=== PATIENT | female | born 1955 | race Caucasian/White ===

== ENCOUNTER 2016-10-25 10:52 | Outpatient (CLI) | payer BC, OTHER ==
[~2016-10-25] VITALS: Ht 162.6 cm; Wt 70.3 kg
[~2016-10-25 10:52] MED LIST: ASPI81TA83 OR; ASPI81TA85 PO; CENTTAB PO; CHRO200C PO; CINNAMON CAP PO; DEXI60CA2 PO; FISH100049 PO; GLIP5TAB8 PO; JANU100T PO; METF10004 PO; METF500T4 OR; MULTIVIT PO; OMEGA 3,6,9 PO; PRIL40CA OR; SIMV40TA2 OR; SIMV40TA2 PO; SUPETAB25 PO; TIZA2TAB3 PO; TIZA4CAP3 PO; TURM500T PO; TURMPOW PO
[2016-10-25] MEDS ORDERED: NS 1,000 ML IV ONE (11:00)
[2016-10-25] MEDS ORDERED: fentaNYL 100 MCG/2 ML INJECTION (J3010) As Ordered ONE (12:54)
[2016-10-25] MEDS ORDERED: PROPOFOL 200 MG/20 ML VIAL As Ordered ONE ×3 (13:11→13:21)
[2016-10-25] MEDS ORDERED: LIDOCAINE 2% INJ 100 MG/5 ML SDV (FOR ANES.) As Ordered ONE (13:11)
--- NOTE | 2016-10-25 13:11 | ROOR ---
Patient Name: Nimco Beard Procedure Date: 10/25/2016 12:52 PM Date of : 1955 Age: 61 Room: [facility] Gender: Female Note Status: Finalized Procedure: Upper Endoscopy + Biopsies Indications: Heartburn Providers: Radu Soto MD Referring MD: MARCE EASLEY MD Requesting Provider: Medicines: Monitored Anesthesia Care Complications: No immediate complications. Procedure: Pre-Anesthesia Assessment: - The heart rate, respiratory rate, oxygen saturations, blood pressure, adequacy of pulmonary ventilation, and response to care were monitored throughout the procedure. The Endoscope was introduced through the mouth, and advanced to the second part of duodenum. The upper GI endoscopy was accomplished without difficulty. The patient tolerated the procedure well. Findings: The Z-line was regular and was found 40 cm from the incisors. One polyp with no bleeding was found 40 cm from the incisors. Biopsies were taken with a cold forceps for histology. No other significant abnormalities were identified in a careful examination of the stomach. The exam of the duodenum was otherwise normal. Impression: - Z-line regular, 40 cm from the incisors. - Esophageal polyp(s) were found. Biopsied. - The examination was otherwise normal. Recommendation: - Await pathology results. - Discharge patient to home. - Follow an antireflux regimen. - Continue present medications. - Return to referring physician. - Telephone GI clinic for pathology results in 1 week. - The findings and recommendations were discussed with the patient's family. Radu Soto MD Radu Soto MD 10/25/2016 1:10:58 PM This report has been signed electronically. Number of Addenda: 0 Note Initiated On: 10/25/2016 12:52 PM Estimated Blood Loss: Estimated blood loss: none.
--- NOTE | 2016-10-25 13:36 | ROOR ---
Patient Name: Nimco Beard Procedure Date: 10/25/2016 12:52 PM Date of : 1955 Age: 61 Room: [facility] Gender: Female Note Status: Finalized Procedure: Colonoscopy to Cecum + Biopsy Polypectomy Indications: Screening for colorectal malignant neoplasm, Last colonoscopy: 2008 Providers: Radu Soto MD Referring MD: MARCE EASLEY MD Requesting Provider: Medicines: Monitored Anesthesia Care Complications: No immediate complications. Procedure: Pre-Anesthesia Assessment: - The heart rate, respiratory rate, oxygen saturations, blood pressure, adequacy of pulmonary ventilation, and response to care were monitored throughout the procedure. The Colonoscope was introduced through the anus and advanced to the cecum, identified by appendiceal orifice and ileocecal valve. The colonoscopy was performed without difficulty. The patient tolerated the procedure well. The quality of the bowel preparation was excellent. Findings: The perianal and digital rectal examinations were normal. Non-bleeding internal hemorrhoids were found during retroflexion. The hemorrhoids were small and Grade I (internal hemorrhoids that do not prolapse). A small polyp was found at 30 cm proximal to the anus. The polyp was flat. The polyp was removed with a jumbo cold forceps. Resection and retrieval were complete. Scattered small-mouthed diverticula were found in the recto-sigmoid colon, sigmoid colon and descending colon. The exam was otherwise without abnormality on direct and retroflexion views. Impression: - Non-bleeding internal hemorrhoids. - One small polyp at 30 cm proximal to the anus, removed with a jumbo cold forceps. Resected and retrieved. - Diverticulosis in the recto-sigmoid colon, in the sigmoid colon and in the descending colon. - The examination was otherwise normal on direct and retroflexion views. - The exam was otherwise normal to the cecum. Recommendation: - Patient has a contact number available for emergencies. The signs and symptoms of potential delayed complications were discussed with the patient. Return to normal activities tomorrow. Written discharge instructions were provided to the patient. - High fiber diet. - Discharge patient to home. - Continue present medications. - Await pathology results. - Telephone GI clinic for pathology results in 1 week. - Repeat colonoscopy in 10 years for surveillance based on pathology results. - Return to referring physician. - The findings and recommendations were discussed with the patient's family. Radu Soto MD Radu Soto MD 10/25/2016 1:35:23 PM This report has been signed electronically. Number of Addenda: 0 Note Initiated On: 10/25/2016 12:52 PM Estimated Blood Loss: Estimated blood loss: none.
[2016-10-25 14:08] VITALS: BP 131/65
== END 2016-10-25 14:10 | disposition home or self-care (01) ==
LOC: M OPP 10:52
PROVIDERS: ATTEND Internal Medicine Gastroenterology
DX: Z12.11 Encounter for screening for malignant neoplasm of colon (principal); K64.0 First degree hemorrhoids; K63.5 Polyp of colon; K57.30 Diverticulosis of large intestine without perforation or abscess without bleeding; R12 Heartburn; K31.7 Polyp of stomach and duodenum; Z79.899 Other long term (current) drug therapy; Z79.01 Long term (current) use of anticoagulants; Z79.82 Long term (current) use of aspirin; I10 Essential (primary) hypertension; E11.9 Type 2 diabetes mellitus without complications; E78.00 Pure hypercholesterolemia, unspecified
CPT/HCPCS: 43239; 45380; 88305; J3010

== ENCOUNTER → 2016-11-25 | Outpatient (REF) | payer OTHER | LOC: M LAB REF 16:10 | PROVIDERS: ATTEND Physician Assistant | DX: N39.0 Urinary tract infection, site not specified (principal) ==

== ENCOUNTER → 2017-02-13 | Outpatient (CLI) | payer BC ==
--- NOTE | 2017-02-13 12:08 | REPMRS ---
Patient History The patient states she had a clinical breast exam in 01/2017. Family history of pancreatic cancer in sister at age 58, ovarian cancer in niece under age 50, and breast cancer in niece. Digital Woman Screen Mammo: February 13, 2017 - Exam #: [id number] Bilateral CC and MLO view(s) were taken. Technologist: Supriya Rivero, Technologist Prior study comparison: February 08, 2016, digital woman screen mammo performed at [facility]. December 26, 2014, digital woman screen mammo performed at [facility]. April 16, 2013, digital woman screen mammo performed at [facility]. FINDINGS: There are scattered fibroglandular densities. There has been no change in the appearance of the mammogram from the prior studies. There is a mild amount of scattered fibroglandular density which is fairly symmetric. There is no interval development of dominant mass, architectural distortion, or clustered microcalcification suggestive of malignancy. ASSESSMENT: BI-RADS/ACR category 1 mammogram. Negative. Recommendation Routine screening mammogram in 1 year (for women over age 40). This mammogram was interpreted with the aid of an FDA-approved computer-aided dectection system. Electronically Signed By: Jhonny Darling MD 02/13/17 [id number]
== END ==
LOC: M WHC 09:47
PROVIDERS: ATTEND Nurse Practitioner Family
DX: Z12.31 Encounter for screening mammogram for malignant neoplasm of breast (principal)

== ENCOUNTER → 2017-09-21 | Outpatient (CLI) | payer BC, OTHER | LOC: M WUC 18:03 | DX: M79.674 Pain in right toe(s) (principal) | CPT/HCPCS: 73660 ==

== ENCOUNTER → 2018-02-14 | Outpatient (CLI) | payer BC | LOC: M WHC 10:32 | DX: Z12.31 Encounter for screening mammogram for malignant neoplasm of breast (principal) | CPT/HCPCS: 77067 ==

== ENCOUNTER → 2018-02-15 | Outpatient (CLI) | payer BC | LOC: M WHC 09:08 | DX: R10.2 Pelvic and perineal pain (principal); Z90.710 Acquired absence of both cervix and uterus | CPT/HCPCS: 76830 ==

== ENCOUNTER → 2018-10-13 | Outpatient (CLI) | payer BC ==
[~2018-10-13] MED LIST changes: -CHRO200C PO; +CHRO200C2 PO; +TIZA4CAP PO; -TIZA4CAP3 PO
--- NOTE | 2018-10-13 16:09 | REP ---
Lumbar spine five views: There are no comparisons. Vertebral body heights, interspacing alignment are normal. There is no spondylolysis or spondylolisthesis. The pedicles, facets and sacroiliac articulations are unremarkable for patient age. There are two calcifications lateral to the L2 left transverse process measuring approximate 7 mm in diameter each. These could be renal or ureteral calculi. There are numerous calcifications in the pelvis, likely phleboliths. Impression: Negative lumbar spine. There are two calcifications on the left, possibly renal or ureteral calculi. Electronically Signed by Zbigniew Reyes MD 10/13/2018 04:01 P
== END ==
LOC: M WUC 15:38
PROVIDERS: ATTEND Physician Assistant
DX: R31.9 Hematuria, unspecified (principal); S39.012A Strain of muscle, fascia and tendon of lower back, initial encounter; X58.XXXA Exposure to other specified factors, initial encounter; Y92.9 Unspecified place or not applicable; Y93.9 Activity, unspecified; Y99.9 Unspecified external cause status

== ENCOUNTER → 2018-11-28 | Outpatient (REF) | payer OTHER ==
[2018-11-28 15:55] LABS: APPEARANCE, URINE HAZY (CLEAR); BACTERIA, URINE AUTO NEGATIVE (NEGATIVE); BILIRUBIN, URINE AUTO NEGATIVE (NEGATIVE); BLOOD, URINE BLOOD 3+ (NEGATIVE); COLOR, URINE YELLOW (YELLOW); GLUCOSE, URINE (UA) AUTO 1+ mg/dL (NEGATIVE); KETONE, URINE AUTO NEGATIVE (NEGATIVE); LEUKOCYTE ESTERASE, URINE AUTO 1+ (NEGATIVE); MUCUS, URINE MODERATE (NEGATIVE); NITRITE, URINE AUTO NEGATIVE (NEGATIVE); PROTEIN, URINE AUTO 2+ mg/dL (NEGATIVE); RBC, URINE AUTO 121 /HPF (0-3); SPECIFIC GRAVITY URINE AUTO 1.027 (1.002-1.035); SQUAMOUS EPITHELIAL CELL UR AU 0 /HPF (0-6); UROBILINOGEN, URINE AUTO 0.2 mg/dL (0.0-2.0); WBC, URINE AUTO 37 /HPF (0-3)
== END ==
LOC: M SFHCPLAZ 15:25
PROVIDERS: ATTEND Nurse Practitioner Family
DX: R31.0 Gross hematuria (principal)

== ENCOUNTER → 2018-12-06 | Outpatient (CLI) | payer OTHER ==
[2018-12-06 19:27] LABS: BLOOD UREA NITROGEN 13 MG/DL (7-18); CALCIUM LEVEL 9.5 MG/DL (8.8-10.2); CARBON DIOXIDE LEVEL 27 MEQ/L (21-32); CHLORIDE LEVEL 105 MEQ/L (98-107); CREATININE FOR GFR 0.72 MG/DL (0.55-1.30); GLOMERULAR FILTRATION RATE > 60.0 (>45); GLUCOSE, FASTING 114 MG/DL (70-100); POTASSIUM SERUM 4.2 MEQ/L (3.5-5.1); SODIUM LEVEL 142 MEQ/L (136-145)
== END ==
LOC: M SMT 15:03
PROVIDERS: ATTEND Nurse Practitioner Family
DX: R31.0 Gross hematuria (principal)

== ENCOUNTER → 2018-12-12 | Outpatient (CLI) | payer BC, OTHER ==
[~2018-12-12] MED LIST changes: +ISOVUE-370 76% 100ML VIAL (Q9967) As Ordered ONE
--- NOTE | 2018-12-13 05:17 | REP ---
Clinical: Gross hematuria. Technique: Axial precontrast, contrast enhanced, and delayed images of the abdomen and pelvis using 100 ml Isovue 370 intravenous contrast material with coronal and sagittal re-formations as well as 3-D MIP urogram. Findings: Mild hydronephrosis and mild inflammatory stranding surrounds the renal pelvis to the level of the ureteropelvic junction where at least to calculi measuring up to approximately 10 mm are identified and likely cause intermittent obstruction and renal colic. Remainder of the urinary tract system is unremarkable. Liver, spleen, pancreas, gallbladder, and bilateral adrenal glands are normal. The enteric system is without obstruction or acute inflammatory process. Normal terminal ileum and appendix are identified in the right lower quadrant. Pelvis demonstrates normal bladder and evidence for prior partial hysterectomy. No ascites. No free air. No adenopathy. Abdominal aorta without aneurysm or dissection. Musculoskeletal structures grossly intact. Impression: 1. Two 10 mm calculi identified in the left renal pelvis mild hydronephrosis and inflammatory stranding suggesting intermittent obstruction and renal colic. Remainder of the urinary tract system is normal. Electronically Signed by Alverto Todd MD 12/13/2018 05:09 A
== END ==
LOC: M RAD 15:51
PROVIDERS: ATTEND Nurse Practitioner Family
DX: R31.0 Gross hematuria (principal); N20.0 Calculus of kidney
CPT/HCPCS: 74178; Q9967

== ENCOUNTER → 2018-12-24 | Outpatient (CLI) | payer BC, OTHER ==
[~2018-12-24] MED LIST changes: +ATOR40TA75 PO; +GLIP5TAB20 PO; -ISOVUE-370 76% 100ML VIAL (Q9967) As Ordered ONE; +LISI10TA4 PO
--- NOTE | 2018-12-24 17:59 | REP ---
Chest x-ray: Two views: History: Preop. Comparison study: April 13, 2010. Findings: The lungs are symmetrically aerated and clear. Heart is not enlarged. The aorta slightly tortuous. The patient is status post ventral discectomy and fusion plating in the lower cervical spine. A epicardial fat pad is again noted in the right cardiophrenic angle on the frontal view. This is unchanged. Pulmonary vasculature is not increased. No other bony abnormality. Impression: Status post cervical spine fusion. Otherwise no acute disease. Electronically Signed by Tyler Darling MD 12/24/2018 06:24 P
[2018-12-24 20:32] LABS: HEMATOCRIT 41.8 % (36.0-47.0); HEMOGLOBIN 13.7 g/dl (12.0-15.5); MEAN CORPUSCULAR HEMOGLOBIN 32.5 pg (27.0-33.0); MEAN CORPUSCULAR HGB CONC 32.8 g/dl (32.0-36.5); MEAN CORPUSCULAR VOLUME 99.3 fl (80.0-96.0); PLATELET COUNT, AUTOMATED 333 10^3/uL (150-450); RED BLOOD COUNT 4.21 10^6/uL (4.00-5.40); WHITE BLOOD COUNT 10.3 10^3/uL (4.0-10.0)
[2018-12-24 20:38] LABS: BLOOD UREA NITROGEN 14 MG/DL (7-18); CARBON DIOXIDE LEVEL 29 MEQ/L (21-32); CHLORIDE LEVEL 104 MEQ/L (98-107); GLOMERULAR FILTRATION RATE > 60.0 (>45); GLUCOSE, FASTING 145 MG/DL (70-100); SODIUM LEVEL 141 MEQ/L (136-145)
== END ==
LOC: M WUC 15:57
PROVIDERS: ATTEND Urology
DX: Z01.818 Encounter for other preprocedural examination (principal); N20.0 Calculus of kidney; Z98.1 Arthrodesis status

== ENCOUNTER 2019-01-02 06:05 | Day surgery (SDC) | payer BC, OTHER ==
[~2019-01-02] VITALS: Ht 162.6 cm; Wt 75.3 kg
[2019-01-02] VITALS (8 sets, daily range): BP systolic 118–143; BP diastolic 60–98
[~2019-01-02 06:05] MED LIST changes: -GLIP5TAB20 PO
[2019-01-02] MEDS ORDERED: CONRAY-60 60% 50ML VIAL (Q9961) As Ordered ONE (06:39)
[2019-01-02] MEDS ORDERED: LIDOCAINE 2% INJ 100 MG/5 ML SDV (FOR ANES.) As Ordered ONE (07:00)
[2019-01-02] MEDS ORDERED: PROPOFOL 200 MG/20 ML VIAL As Ordered ONE ×2 (07:00→07:56)
[2019-01-02] MEDS ORDERED: LR 1,000 ML IV ONE (07:00)
[2019-01-02] MEDS ORDERED: ceFAZolin SOD 2 GM in IV 1 EA IV ONE (07:00)
[2019-01-02] MEDS ORDERED: dexameTHASONE 4 MG/ML 1ML VIAL (J1100) As Ordered ONE (07:01)
[2019-01-02] MEDS ORDERED: ONDANSETRON 4MG/2ML VIAL (J2405) As Ordered ONE (07:01)
[2019-01-02] MEDS ORDERED: fentaNYL 250 MCG/5 ML INJECTION (J3010) As Ordered ONE (07:01)
[2019-01-02] MEDS ORDERED: MIDAZOLAM INJ 2 MG/2 ML VIAL (J2250) As Ordered ONE (07:03)
[2019-01-02] MEDS ORDERED: SCOPOLAMINE 1MG TRANSDERMAL PATCH As Ordered ONE (07:27)
[2019-01-02] MEDS ORDERED: SUCCINYLCHOLINE 100 MG/5 ML SYRINGE (J0330) As Ordered ONE (07:56)
[2019-01-02] MEDS ORDERED: ROCURONIUM BROMIDE 50 MG/5 ML VIAL As Ordered ONE (07:57)
[2019-01-02] MEDS ORDERED: ACETAMINOPHEN 1000MG 100ML IV BTL (OFIRMEV) (J0131 PER 10MG) As Ordered ONE (08:11)
[2019-01-02] MEDS ORDERED: KETOROLAC 60 MG/2 ML VIAL (J1885) As Ordered ONE (08:12)
[2019-01-02] MEDS ORDERED: LABETALOL HCL 100 MG/20 ML VIAL As Ordered ONE (08:51)
[2019-01-02] MEDS ORDERED: ACETAMINOPHEN TAB 650MG DOSE (2X325MG) PO PRN (10:00)
[2019-01-02] MEDS ORDERED: PERCOCET 5MG/325MG TAB PO PRN ×2 (10:00→11:00)
[2019-01-02] MEDS ORDERED: IBUPROFEN 600 MG TAB PO PRN (10:00)
[2019-01-02] MEDS ORDERED: METOCLOPRAMIDE INJ 10MG/2ML VIAL (J2765) IV PRN ×2 (10:00→11:00)
[2019-01-02] MEDS ORDERED: ONDANSETRON 4MG/2ML VIAL (J2405) IV PRN ×3 (10:00→11:00)
[2019-01-02] MEDS ORDERED: LR 1,000 ML IV SCH ×2 (10:00→11:00)
[2019-01-02] MEDS: fentaNYL 100 MCG/2 ML INJECTION (J3010) IV PRN ×4 (10:03→10:18)
--- NOTE | 2019-01-02 10:09 | REP ---
Portable KUB: Single view. History: Post cystoscopy. Comparison CT study December 12, 2018. Findings: A double pigtail left ureteral stent is noted in place. There are multiple phleboliths in the pelvis bilaterally. The calculi seen by recent CT in the renal pelvis on the left are not apparent on plain radiographs. Bowel gas pattern is normal. Impression: Left-sided the double pigtail ureteral stent in place. Normal bowel gas pattern. No definite upper tract calculi seen. Electronically Signed by Tyler Darling MD 01/02/2019 10:01 A
[2019-01-02] MEDS: oxyBUTYnin 5 MG TAB PO PRN ×2 (10:34→20:13)
[2019-01-02] MEDS ORDERED: MORPHINE 10 MG/ML 1ML VIAL (J2270) As Ordered ONE (10:44)
[2019-01-02] MEDS: MORPHINE 4 MG/ML 1ML VIAL/SYRINGE (J2270) IV SCH ×3 (10:48→11:35)
[2019-01-02] MEDS ORDERED: fentaNYL 100 MCG/2 ML INJECTION (J3010) IV PRN (11:00)
[2019-01-02 11:05] LABS: BLOOD UREA NITROGEN 14 MG/DL (7-18); CALCIUM LEVEL 8.4 MG/DL (8.8-10.2); CARBON DIOXIDE LEVEL 24 MEQ/L (21-32); CHLORIDE LEVEL 105 MEQ/L (98-107); CREATININE FOR GFR 0.71 MG/DL (0.55-1.30); GLOMERULAR FILTRATION RATE > 60.0 (>45); GLUCOSE, FASTING 203 MG/DL (70-100); POTASSIUM SERUM 4.5 MEQ/L (3.5-5.1); SODIUM LEVEL 136 MEQ/L (136-145)
[2019-01-02] MEDS ORDERED: GLIP5TAB20 PO (11:46)
--- NOTE | 2019-01-02 14:57 | RO ---
DATE OF PROCEDURE: 01/02/2019 PREPROCEDURE DIAGNOSIS: Left kidney stone. POSTPROCEDURE DIAGNOSIS: Left kidney stone. PROCEDURE: Cystoscopy, left ureteroscopy with laser lithotripsy and basket extraction of stones, left ureteral stent placement. SURGEON: Ryan Carr MD [employer] THERAPY: None. ANESTHESIA: General. OPERATIVE INDICATIONS: This is a 61-year-old female found to have two left kidney stones, each measuring around 1 cm in size. She was brought to the operating room today for the above listed procedure. DESCRIPTION OF PROCEDURE: The patient was brought to the operating room and general anesthesia was induced. Prophylactic antibiotics were infused. She was then placed in dorsal lithotomy position, prepped and draped in the usual sterile fashion. A rigid cystoscope was inserted into the urethral meatus and advanced into the bladder. Once inside the bladder, a Guidewire was advanced up the left collecting system. I then advanced the ureteral access sheath over the wire. I went up the access sheath with the flexible ureteroscope and then examined the mid to proximal ureter and there were no stones in the ureter. Within the kidney, there were two stones, each measuring around 1 cm in size. Both of these stones were fragmented into small pieces using 200 micron laser fiber. A few stone fragments were retrieved and sent for pathologic analysis. The remainder of the stone fragments were fragmented into very tiny pieces that should be small enough for the patient to pass. Once satisfied that there were no large stone fragments remaining, the ureteroscope was removed along with the access sheath, and once again no stones were seen in the mid to proximal ureter and none were seen in the distal ureter either. The previously placed wire was then utilized to advance a 7 Khmer by 22-32 cm JJ ureteral stent up through the left collecting system. The wire was then removed and there was an adequate curl of the stent seen inside the bladder. The bladder was then emptied of all fluids. This marked the conclusion of the procedure. The patient was then taken out of dorsal lithotomy position, awakened from anesthesia and sent to the recovery room in stable condition. ESTIMATED BLOOD LOSS: 5 mL. COMPLICATIONS: None. SPECIMENS: Kidney stone fragments. PLAN: I will get a KUB in the recovery room to confirm stent placement. She will followup in the clinic in a few weeks with imaging prior, and she will have her stent removed. JENNIFER
[2019-01-02] MEDS: PERCOCET 5MG/325MG TAB PO PRN ×2 (16:54→23:24)
[2019-01-02] MEDS ORDERED: glipiZIDE (GLUCOTROL) 5 MG TAB PO SCH (17:30)
[2019-01-02] MEDS: SITagliptin 50 MG TAB (JANUVIA) PO SCH (18:04)
[2019-01-02] MEDS: metFORMIN (GLUCOPHAGE) 1000 MG TABLET PO SCH (18:04)
[2019-01-02] MEDS: glipiZIDE XL 5 MG TABCR PO SCH (20:13)
[2019-01-02] MEDS ORDERED: ATORVASTATIN 20 MG TAB PO SCH (21:00)
[2019-01-03] VITALS: BP 120/65
[2019-01-03 04:00] VITALS: BP 125/66
[2019-01-03 06:00] VITALS: BP 124/75
[2019-01-03 08:03] VITALS: BP 140/73
[2019-01-03] MEDS: SITagliptin 50 MG TAB (JANUVIA) PO SCH ×2 (08:03→08:06)
[2019-01-03] MEDS: glipiZIDE XL 5 MG TABCR PO SCH (08:03)
[2019-01-03] MEDS: metFORMIN (GLUCOPHAGE) 1000 MG TABLET PO SCH (08:03)
--- NOTE | 2019-01-03 08:28 | IPNPDOC ---
Subjective Review oF Systems Chief Complaint The patient is a 63-year-old female admitted with a reason for visit of Nephrolithiasis. Events since Last Encounter No acute events o/n. Notes mild pain due to bladder spasms and urinary frequency. No chest pain or SOB. Objective Physical Examination General Exam: Alert, Cooperative, No Acute Distress ABDOMEN EXAM: Soft Skin Exam: Nl turgor and temperature Neuro Exam: Normal Speech Psych Exam: Mental status NL, Mood NL Vital Signs/I&O Vital Signs Date Time Temp Pulse Resp B/P (MAP) Pulse Ox O2 Delivery O2 Flow Rate FiO2 01/03/19 08:03 140/73 01/03/19 06:00 98.8 94 19 98 2.0 I&O- Last 24 Hours up to 6 AM 01/03/19 06:00 Intake Total 3495 ml Output Total 1650 ml Balance 1845 ml Laboratory Data Labs 24H Laboratory Tests 2 01/02/19 10:27: Anion Gap 7L, Glomerular Filtration Rate > 60.0, Calcium Level 8.4L CBC/BMP Laboratory Tests 01/02/19 10:27 Assessment/Plan Date Seen The patient was seen on 01/03/19. Patient Summary This is a 63 y/o F POD1 s/p cysto, left ureteroscopy w/ laser lithotripsy and basket extraction of stones, and left ureteral stent placement, kept o/n due to a few runs of V tach in the PACU. This has been worked up previously but no results were available to us to review. She had no additional runs while on the RNF. She feels well. Plan/VTE VTE Prophylaxis Ordered?: Yes VTE Exclusion Mechanical Proph: N/A:VTE Prophy Ordered Plan - oxybutynin prn bladder spasms - regular diet - plan discharge home today as there has been no additional abnormal activity on telemetry KIA MCGUIRE MD Jan 03, 2019 08:28
[2019-01-03] MEDS ORDERED: LISINOPRIL 10 MG TAB PO SCH (09:00)
== END 2019-01-03 10:45 | disposition home or self-care (01) ==
LOC: M SDC 06:05 → M MSPAV 11:37 → M SDC 01-03 10:45
PROVIDERS: ATTEND Urology
DX: N20.0 Calculus of kidney (principal); I97.89 Other postprocedural complications and disorders of the circulatory system, not elsewhere classified; I47.2 Ventricular tachycardia; I10 Essential (primary) hypertension; E78.5 Hyperlipidemia, unspecified; K21.9 Gastro-esophageal reflux disease without esophagitis; Z91.040 Latex allergy status; Z79.84 Long term (current) use of oral hypoglycemic drugs; Z79.899 Other long term (current) drug therapy
CPT/HCPCS: 36415; 52356; 74018; 80048; 82360; 88300; C1894; C2617; J0131; J0330; J0690; J1100; J1885; J2250; J2270; J2405; J3010; Q9961

== ENCOUNTER → 2019-01-22 | Outpatient (CLI) | payer BC, OTHER ==
[~2019-01-22] MED LIST changes: +GLIP5TAB20 PO
--- NOTE | 2019-01-23 03:27 | REP ---
Clinical: Kidney stone. Technique: Single supine view of the abdomen and pelvis. Findings: Left ureteral stent in satisfactory position. Left intrarenal calculi measuring up to approximately 3 - 4 mm are appreciated. Calcifications within the pelvis likely represent phleboliths. Bowel gas pattern is nonspecific. Skeletal structures are intact. Impression: Left ureteral calculi Electronically Signed by Alverto Todd MD 01/23/2019 03:18 A
== END ==
LOC: M RAD 12:03
PROVIDERS: ATTEND Specialist
DX: N20.0 Calculus of kidney (principal)

== ENCOUNTER → 2019-02-18 | Outpatient (CLI) | payer BC ==
[~2019-02-18] MED LIST changes: -SIMV40TA2 PO; +SIMV40TA20 PO
--- NOTE | 2019-02-18 11:17 | REPMRS ---
Patient History The patient states she had a clinical breast exam in February 2019.Family history of ovarian cancer under age 50 in niece, breast cancer in niece, pancreatic cancer at age 58 in sister. 3D TOMOSYNTHESIS WAS PERFORMED. The Cristy Roth lifetime risk for breast cancer is 5.0%. Digital Woman Screen Mammo: February 18, 2019 - Exam #: [id number] Bilateral CC and MLO view(s) were taken. Technologist: Lorrie Chaudhari, Technologist Prior study comparison: February 14, 2018, bilateral digital woman screen mammo performed at [facility]. February 13, 2017, digital woman screen mammo performed at [facility]. FINDINGS: The breast tissue is heterogeneously dense. This may lower the sensitivity of mammography. There has been no change in the appearance of the mammogram from the prior studies. There is a moderate amount of residual fibroglandular tissue which is fairly symmetric. There is no interval development of dominant mass, areas of architectural distortion, or clustered microcalcification typical of malignancy. Assessment: BI-RADS/ACR category 1 mammogram. Negative Mammogram. Recommendation Routine screening mammogram in 1 year (for women over age 40). This mammogram was interpreted with the aid of an FDA-approved computer-aided dectection system. Electronically Signed By: Zbigniew Atkins MD 02/18/19 [id number]
== END ==
LOC: M WHC 09:56
PROVIDERS: ATTEND Nurse Practitioner Family
DX: Z12.31 Encounter for screening mammogram for malignant neoplasm of breast (principal)

== ENCOUNTER → 2020-03-30 | Outpatient (CLI) | payer BC, MEDICARE ==
[~2020-03-30] MED LIST changes: -ASPI81TA85 PO; +ASPI81TA86 PO
--- NOTE | 2020-03-30 16:02 | REPMRS ---
Patient History The patient states she had a clinical breast exam in 2020. Family history of ovarian cancer under age 50 in niece, breast cancer in niece, pancreatic cancer at age 58 in sister. 3D TOMOSYNTHESIS WAS PERFORMED. The Cristy Tavarez lifetime risk for breast cancer is 4.8%. [place] breast density b. Digital Woman Screen Mammo: March 30, 2020 - Exam #: [id number] Bilateral CC and MLO view(s) were taken. Technologist: Nolvia Zuñiga, Technologist Prior study comparison: February 18, 2019, bilateral digital woman screen mammo performed at [facility]. February 14, 2018, bilateral digital woman screen mammo performed at [facility]. FINDINGS: There are scattered fibroglandular densities. There has been no change in the appearance of the mammogram from the prior studies. There is a mild amount of residual fibroglandular tissue which is fairly symmetric. There is no interval development of dominant mass, architectural distortion, or clustered microcalcification suggestive of malignancy. Assessment: BI-RADS/ACR category 1 mammogram. Negative Mammogram. Recommendation Routine screening mammogram in 1 year (for women over age 40). This mammogram was interpreted with the aid of an FDA-approved computer-aided dectection system. Electronically Signed By: Zbigniew Atkins MD 03/30/20 [id number]
== END ==
LOC: M WHC 13:49
PROVIDERS: ATTEND Nurse Practitioner Family
DX: Z12.31 Encounter for screening mammogram for malignant neoplasm of breast (principal)

== ENCOUNTER → 2021-05-26 | Outpatient (CLI) | payer BC, MEDICARE ==
[~2021-05-26] MED LIST changes: +LISI10TA22 PO; -LISI10TA4 PO
== END ==
LOC: M WUC 09:37
DX: M25.571 Pain in right ankle and joints of right foot (principal)

== ENCOUNTER → 2021-06-10 | Outpatient (REF) | payer MEDICARE, BC, OTHER ==
[2021-06-10 13:39] LABS: BACTERIA, URINE AUTO NEGATIVE (NEGATIVE); MUCUS, URINE SMALL (NEGATIVE); RBC, URINE AUTO 15 /HPF (0-3); SQUAMOUS EPITHELIAL CELL UR AU 0 /HPF (0-6); WBC, URINE AUTO 1 /HPF (0-3)
== END ==
LOC: M SMT 13:00
PROVIDERS: ATTEND Specialist
DX: N20.0 Calculus of kidney (principal)

== ENCOUNTER → 2021-06-10 | Outpatient (CLI) | payer MEDICARE, BC, OTHER | LOC: M PLAIMG 12:36 | PROVIDERS: ATTEND Specialist | DX: N20.0 Calculus of kidney (principal) ==

== ENCOUNTER → 2021-06-22 | Outpatient (REF) | payer MEDICARE, BC, OTHER ==
[2021-06-22 14:18] LABS: APPEARANCE, URINE CLEAR (CLEAR); BACTERIA, URINE AUTO NEGATIVE (NEGATIVE); BILIRUBIN, URINE AUTO NEGATIVE (NEGATIVE); BLOOD, URINE BLOOD 1+ (NEGATIVE); COLOR, URINE YELLOW (YELLOW); GLUCOSE, URINE (UA) AUTO NEGATIVE (NEGATIVE); KETONE, URINE AUTO NEGATIVE (NEGATIVE); LEUKOCYTE ESTERASE, URINE AUTO NEGATIVE (NEGATIVE); MUCUS, URINE SMALL (NEGATIVE); NITRITE, URINE AUTO NEGATIVE (NEGATIVE); PROTEIN, URINE AUTO 1+ mg/dL (NEGATIVE); RBC, URINE AUTO 1 /HPF (0-3); SQUAMOUS EPITHELIAL CELL UR AU 0 /HPF (0-6); UROBILINOGEN, URINE AUTO 0.2 mg/dL (0.0-2.0); WBC, URINE AUTO 1 /HPF (0-3)
== END ==
LOC: M SMT 12:57
PROVIDERS: ATTEND Urology
DX: R31.29 Other microscopic hematuria (principal)

== ENCOUNTER → 2021-08-03 | Outpatient (REF) | payer MEDICARE, OTHER | LOC: M PLALAB 15:17 | PROVIDERS: ATTEND Obstetrics & Gynecology | DX: N95.2 Postmenopausal atrophic vaginitis (principal); Z12.4 Encounter for screening for malignant neoplasm of cervix | CPT/HCPCS: 87624; G0123 ==

== ENCOUNTER → 2021-08-03 | Outpatient (CLI) | payer MEDICARE, BC, OTHER | LOC: M WHC 14:36 | PROVIDERS: ATTEND Obstetrics & Gynecology | DX: Z12.31 Encounter for screening mammogram for malignant neoplasm of breast (principal); Z80.3 Family history of malignant neoplasm of breast; Z80.41 Family history of malignant neoplasm of ovary; Z80.0 Family history of malignant neoplasm of digestive organs ==

== ENCOUNTER → 2021-08-23 | Outpatient (CLI) | payer MEDICARE, BC, OTHER | LOC: M WHC 10:29 | PROVIDERS: ATTEND Obstetrics & Gynecology | DX: R10.2 Pelvic and perineal pain (principal); Z13.820 Encounter for screening for osteoporosis; M85.88 Other specified disorders of bone density and structure, other site; M85.851 Other specified disorders of bone density and structure, right thigh ==

== ENCOUNTER → 2022-07-12 | Outpatient (CLI) | payer MEDICARE, BC, OTHER | LOC: M PLALAB 09:09 | PROVIDERS: ATTEND Urology | DX: K59.00 Constipation, unspecified (principal); N20.0 Calculus of kidney; R31.29 Other microscopic hematuria ==

== ENCOUNTER → 2022-08-09 | Outpatient (CLI) | payer MEDICARE, BC, OTHER | LOC: M WHC 15:22 | PROVIDERS: ATTEND Advanced Practice Midwife | DX: Z12.31 Encounter for screening mammogram for malignant neoplasm of breast (principal); Z80.41 Family history of malignant neoplasm of ovary; Z80.0 Family history of malignant neoplasm of digestive organs ==

== ENCOUNTER → 2023-06-19 | Outpatient (CLI) | payer MEDICARE, BC ==
[~2023-06-19] MED LIST changes: +GLIP5TAB17 PO; -GLIP5TAB8 PO
== END ==
LOC: M RAD 10:26
PROVIDERS: ATTEND Urology
DX: N20.0 Calculus of kidney (principal)

== ENCOUNTER → 2023-08-15 | Outpatient (CLI) | payer MEDICARE, BC | LOC: M WHC 13:21 | PROVIDERS: ATTEND Advanced Practice Midwife | DX: Z12.31 Encounter for screening mammogram for malignant neoplasm of breast (principal); R92.323 Mammographic fibroglandular density, bilateral breasts ==

== ENCOUNTER → 2024-07-15 | Outpatient (CLI) | payer MEDICARE, BC ==
[~2024-07-15] MED LIST changes: +GLIP-318 PO; -GLIP5TAB20 PO
== END ==
LOC: M PLAIMG 14:55
PROVIDERS: ATTEND Urology
DX: N20.0 Calculus of kidney (principal)

== ENCOUNTER → 2024-12-04 | Outpatient (CLI) | payer MEDICARE, BC | LOC: M WHC 14:28 | PROVIDERS: ATTEND Advanced Practice Midwife | DX: Z12.31 Encounter for screening mammogram for malignant neoplasm of breast (principal); R92.323 Mammographic fibroglandular density, bilateral breasts ==

== ENCOUNTER → 2025-02-04 | Outpatient (CLI) | payer MEDICARE, BC | LOC: M WUC 11:23 | PROVIDERS: ATTEND Student in an Organized Health Care Education/Training Program | DX: M25.531 Pain in right wrist (principal) ==